=== PATIENT | male | born 1960 | race African-American/Black ===

== ENCOUNTER 2021-04-28 12:59 | Emergency (ER) | payer OTHER, SELFPAY ==
[~2021-04-28] VITALS: Ht 175.3 cm; Wt 75.0 kg
[~2021-04-28 12:59] MED LIST: FERR325T29 PO; NOCURR; OMEP40CA21 PO
[2021-04-28 13:13] VITALS: BP 113/70
[2021-04-28] MEDS ORDERED: MAG HYDROX/AL HYDROX/SIMETH 30 ML SUSP UDCUP PO ONE (14:15)
[2021-04-28] MEDS ORDERED: FAMOTIDINE 20 MG TABLET PO ONE (14:15)
[2021-04-28] MEDS ORDERED: ONDANSETRON HCL 4 MG TABLET PO ONE (14:15)
[2021-04-28 14:31] LABS: BASOPHILS % (AUTO) 0.5 % (0.0-2.0); HEMATOCRIT 43.4 % (41-53); HEMOGLOBIN 14.7 g/dL (13.5-17.5); LYMPHOCYTES # (AUTO) 1.8 K/uL (1.0-4.8); MEAN CORPUSCULAR HEMOGLOBIN 32.4 pg (26.0-34.0); MEAN CORPUSCULAR HGB CONC 33.8 G/dL (31.0-37.0); MEAN CORPUSCULAR VOLUME 96 fL (80-100); MONOCYTES # (AUTO) 0.4 K/uL (0.1-1.0); MONOCYTES % (AUTO) 8.3 % (2.0-9.0); NEUTROPHILS # (AUTO) 2.6 K/uL (1.8-7.7); NEUTROPHILS % (AUTO) 49.2 % (40.0-70.0); PLATELET COUNT (AUTO) 239 K/uL (150-450); RED BLOOD CELL COUNT(AUTO) 4.53 MIL/uL (4.50-5.90); RED CELL DISTRIBUTION WIDTH 13.3 % (11.5-14.5)
[2021-04-28 14:39] LABS: ANION GAP 8 mmol/L (8-16); CALCIUM, TOTAL 8.8 mg/dL (8.8-10.5); CARBON DIOXIDE 27 mmol/L (22-29); CHLORIDE 102 mmol/L (98-107); CREATININE 1.03 mg/dL (0.60-1.30); GLOMERULAR FILTR. RATE CALC > 60 mL/min (>60); GLUCOSE,RANDOM 113 mg/dL (70-110); POTASSIUM 3.7 mmol/L (3.5-5.1); SODIUM SERUM 137 mmol/L (136-145); UREA NITROGEN, BLOOD 14 mg/dL (7-18)
[2021-04-28 14:45] LABS: ALANINE AMINOTRANSFERASE 75 U/L (12-78); ALKALINE PHOSPHATASE 42 U/L (46-116); ASPARTATE AMINOTRANSFERASE 24 U/L (15-37); BILIRUBIN,TOTAL 1.1 mg/dL (0.1-1.0); LIPASE 146 U/L (73-393); TOTAL PROTEIN, SERUM 6.7 g/dL (6.4-8.2)
[2021-04-28 15:20] LABS: COVID AG,FIA SOURCE NASOPHARYNGEAL
[2021-04-28 16:17] LABS: INFLUENZA TYPE A NEGATIVE FOR TYPE A (NEGATIVE); INFLUENZA TYPE B NEGATIVE FOR TYPE B (NEGATIVE)
== END 2021-04-28 17:11 | disposition home or self-care (01) ==
LOC: EMS 13:16
DX: R53.1 Weakness (principal); R11.2 Nausea with vomiting, unspecified; Z20.822 Contact with and (suspected) exposure to COVID-19
CPT/HCPCS: 36415; 80053; 83690; 84484; 85025; 87426; 87804; 93005; 99284; G0480; Q0162